=== PATIENT | male | born 1945 | race Caucasian/White ===

== ENCOUNTER → 2017-11-21 | Outpatient (CLI) | payer MEDICARE, BC, SELFPAY | PROVIDERS: Family Provider Family Medicine; Visit Provider Family Medicine | DX: M54.2 Cervicalgia (principal) | CPT/HCPCS: 72050 ==

== ENCOUNTER → 2017-12-08 14:28 | Outpatient (CLI) | payer MEDICARE, BC, SELFPAY ==
--- NOTE | 2017-12-08 14:37 | MR_ITS ---
MR cervical spine wo con, MR 3-d myelogram/MRCP HISTORY: Neck pain with left arm pain and numbness and tingling ITS.REASON: NECK PAIN ORDERING PHYSICIAN: Tamiko Ferguson MD PATIENT AGE: 72 years COMPARISON: Radiograph of 11/21/2017 TECHNIQUE: Standard multiplanar multiecho sequences are performed without contrast. 3-D MIP and myelographic images are also rendered and reviewed FINDINGS: There is mild motion artifact causing some limitation. There is normal alignment. Multilevel degenerative disc disease is present. The craniocervical junction has an unremarkable appearance. C2-C3: Mild degenerative disc disease with minimal avulsion disc and endplate osteophytes with mild bilateral foraminal narrowing left greater than right from uncovertebral hypertrophy. The bulging disc osteophyte complex slightly eccentric toward the left C3-C4: Degenerative disc disease with bulging disc/osteophyte complex with central disc protrusion/herniation with prominence of the posterior longitudinal ligament with mild impingement upon the anterior aspect of the cord with canal stenosis at 10 mm. There is bilateral foraminal narrowing from uncovertebral hypertrophy. C4-C5: Degenerative disc disease with degenerative disc disease with uncovertebral hypertrophy and bilateral foraminal narrowing left greater than right. C5-C6: Moderate to severe degenerative disc disease with bulging disc with uncovertebral hypertrophy. There is canal stenosis with bilateral foraminal narrowing. Moderate motion artifact obscures fine detail at this region. Minimal impingement on the cord anteriorly C6-C7: Severe degenerative disc disease with bulging disc and minimal central disc protrusion with moderate canal stenosis along with bilateral lateral recess and foraminal narrowing. Mild impingement upon the cord anteriorly C7-T1: Unremarkable Minimal anterolisthesis T1 and T2 IMPRESSION: There is multilevel cervical spondylosis with degenerative disc disease along with uncovertebral hypertrophy and bulging disc and disc osteophyte complexes. Please see above for detailed description at each level. Canal stenosis is present C3-C7 Degenerative disc disease with bulging disc/osteophyte complex with central disc protrusion/herniation with prominence of the posterior longitudinal ligament with mild impingement upon the anterior aspect of the cord with canal stenosis at 10 mm
== END ==
PROVIDERS: Family Provider Family Medicine; PCP Family Medicine; Visit Provider Family Medicine
DX: M54.2 Cervicalgia (principal)
CPT/HCPCS: 72141; 76376

== ENCOUNTER → 2018-01-31 15:30 | Outpatient (CLI) | payer MEDICARE, BC, SELFPAY ==
--- NOTE | 2018-01-31 15:41 | XR_ITS ---
XR chest 2V HISTORY: ITS.REASON: COUGH ORDERING PHYSICIAN: Tamiko Ferguson MD PATIENT AGE: 72 years COMPARISON: 10/25/2017 FINDINGS: There has been a prior CABG. Mild cardiomegaly without failure. COPD with chronic changes are noted with evidence of old granulomatous disease. Chronic changes are present in the right apex. No lobar consolidation or collapse. There are degenerative changes in the thoracic spine. IMPRESSION: Prior CABG with COPD and chronic changes, no acute finding
== END ==
PROVIDERS: PCP Family Medicine; Visit Provider Family Medicine
DX: R05 Cough (principal)
CPT/HCPCS: 71046

== ENCOUNTER → 2018-04-13 11:49 | Outpatient (CLI) | payer MEDICARE, BC, SELFPAY ==
--- NOTE | 2018-04-13 12:04 | XR_ITS ---
XR hip RT 2-3V w/pelvis HISTORY: Right hip pain ITS.REASON: SALOMON HIP PAIN,LOW BACK PAIN ORDERING PHYSICIAN: Tamiko Ferguson MD PATIENT AGE: 72 years COMPARISON: None FINDINGS: Total hip prosthesis present in good position. No evidence of complications. There is dense vascular calcification. IMPRESSION: Status post total hip prosthesis placement, no acute finding
--- NOTE | 2018-04-13 12:04 | XR_ITS ---
EXAM: XR lumbar spine min 4V HISTORY: Low back pain with bilateral hip pain ITS.REASON: SALOMON HIP PAIN,LOW BACK PAIN ORDERING PHYSICIAN: Tamiko Ferguson MD PATIENT AGE: 72 years COMPARISON: None FINDINGS: Mild lumbar scoliosis convex right with multilevel degenerative disc disease from T11 to S1 worse at L1-L2 and L2-L3. No fracture or dislocation. No lytic or blastic change. There are moderate bony hypertrophic changes with bridging osteophytes on the left at L3-L4. There is a total hip prosthesis present on the right and there is generalized vascular calcification of the aorta. IMPRESSION: Lumbar spondylosis with scoliosis as described above
--- NOTE | 2018-04-13 12:04 | XR_ITS ---
XR hip LT 2-3V w/pelvis HISTORY: ITS.REASON: SALOMON HIP PAIN,LOW BACK PAIN ORDERING PHYSICIAN: Tamiko Ferguson MD PATIENT AGE: 72 years COMPARISON: None FINDINGS: Mild osteoarthritic changes are present involving the left hip. There is a long intramedullary dmitry present stabilizing an old midshaft femoral fracture. The dmitry is slightly bent at the fracture site and slightly angled anteriorly and medially. There is some heterotopic bone formation along the proximal aspect of the dmitry which juts above the greater trochanter x 4 cm. No acute fracture or dislocation is evident. IMPRESSION: Old left femoral shaft fracture stabilized by an intramedullary dmitry which is bent in its mid aspect of the described above with heterotopic bone along the proximal aspect of the dmitry and mild osteoarthritic change of the hip
== END ==
PROVIDERS: PCP Family Medicine; Visit Provider Family Medicine
DX: M25.552 Pain in left hip (principal); M25.551 Pain in right hip; M54.5 Low back pain
CPT/HCPCS: 72110; 73502

== ENCOUNTER → 2018-06-05 11:02 | Outpatient (CLI) | payer MEDICARE, BC, SELFPAY ==
--- NOTE | 2018-06-05 11:10 | XR_ITS ---
XR tibia fibula LT 2V CLINICAL INDICATION: ITS.REASON: LT TIBIAL PAIN ORDERING PHYSICIAN: Tamiko Ferguson MD PATIENT AGE: 72 years Comparison: None FINDINGS: No fracture or dislocation. There are osteoarthritic changes of the knee joint. There is a 16 x 14 mm fairly well-circumscribed sclerotic density overlying the proximal aspect of the tibia anteriorly. This is of unknown clinical significance. No lytic lesions are evident. There is generalized vascular calcification. IMPRESSION: 16mm well-circumscribed sclerotic focus over the proximal tibia anteriorly in the cortical region. Possible small blastic focus. CT may be of further value. Bone scan may also provide further evaluation. Osteoarthritis of the knee
== END ==
PROVIDERS: PCP Family Medicine; Visit Provider Family Medicine
DX: M89.8X6 Other specified disorders of bone, lower leg (principal)
CPT/HCPCS: 73590